=== PATIENT | female | born 1945 | race Hispanic/Latino ===

== ENCOUNTER 2017-04-27 08:01 | Emergency (ER) | payer OTHER, MEDICARE ==
[~2017-04-27] VITALS: Ht 167.6 cm; Wt 72.6 kg
[~2017-04-27 08:01] MED LIST: A/B OTIC 54 MG/15 ML OT; ANTIVERT 25MG #1 PAC PO; ANTIVERT25 MG PO; FIORICET 50-301 EACH PO; FLONASE120 SPRAY/ IN; IBUPROFEN800 M1 PO; MECLIZINE HCL25 MG PO; MOTRIN 600 MG600 MG PO; VALIUM5 M2 PO; ZOFRAN ODT4 M1 SL; ZOFRAN4 M2 PO
[2017-04-27 08:07] VITALS: BP 139/78
--- NOTE | 2017-04-27 09:17 | RADIOLOGY REPORT ---
EXAMINATION: XR PORTABLE CHEST CLINICAL INFORMATION: Chest pain COMPARISON: 08/11/2015 chest x-ray TECHNIQUE: Portable AP upright view of the chest was obtained. FINDINGS: Heart size and pulmonary vascularity is within normal limits. The lungs are normally expanded and clear. No focal consolidation or atelectasis is seen. There is no pneumothorax or pleural effusion. There is no change compared to prior study IMPRESSION: Normally expanded and grossly clear lungs with no acute findings.
[2017-04-27 09:18] LABS: ABSOLUTE BASOPHIL COUNT 0 /CUMM (0.0-0.2); ABSOLUTE EOSINOPHIL COUNT 0.1 /CUMM (0.0-0.7); ABSOLUTE GRANULOCYTE CT 3.5 /CUMM (1.4-6.5); ABSOLUTE MONOCYTE COUNT 0.5 /CUMM (0.10-0.60); BASOPHIL % 0.6 % (0.0-2.0); EOSINOPHIL % 1.9 % (0-5); GRANULOCYTE % 57.3 % (42.2-75.2); HEMATOCRIT 38.6 % (37-47); MEAN CORPUSCULAR HGB 29.9 PG (27.0-31.0); MEAN CORPUSCULAR HGB CONC 33.6 G/DL (33.0-37.0); MEAN CORPUSCULAR VOLUME 89.1 FL (81.0-99.0); MEAN PLATELET VOLUME 7.9 FL (7.4-10.4); PLATELET COUNT 231 /CUMM (130-400); RBC DISTRIBUTION WIDTH 13.8 % (11.5-14.5); RED BLOOD CELL CT 4.34 /CUMM (4.20-5.40); WHITE BLOOD CELL COUNT 6.1 /CUMM (4.8-10.8)
[2017-04-27] MEDS ORDERED: IBUPROFEN600 M1 PO ×2 (10:35→10:56)
[2017-04-27] MEDS ORDERED: BACLOFEN10 M1 PO ×2 (10:35→10:56)
[2017-04-27] MEDS ORDERED: ULTRAM50 M1 PO ×2 (10:35→10:56)
[2017-04-27] MEDS ORDERED: [UNRECOGNIZED DRUG - SUPPLY] (10:37)
--- NOTE | 2017-04-27 10:38 | ED NECK/BACK PAIN COMPLAINT ---
History of Present Illness General Chief Complaint: Low Back Pain/Injury Stated Complaint: LOW BACK PAIN Source: patient, old records Exam Limitations: no limitations Vital Signs & Intake/Output Vital Signs & Intake/Output Vital Signs Date Time Temp Pulse Resp B/P B/P Pulse O2 O2 Flow FiO2 Mean Ox Delivery Rate 04/27 0822 97 Room Air Room Air 04/27 0807 98.6 77 18 139/78 98 Room Air Allergies Coded Allergies: NO KNOWN ALLERGIES (05/28/16) Reconcile Medications Diazepam (Valium) 5 MG TABLET 1 TAB PO Q8P PRN dizziness Ibuprofen 800 MG TABLET 1 TAB PO PRN PAIN (Reported) Ibuprofen 800 MG TABLET 1 TAB PO TID PRN pain Meclizine (Antivert) 25 MG TABLET 1 TAB PO TID dizziness Meclizine HCl 25 MG TABLET 1 TAB PO TIDPRN PRN VERTIGO Ondansetron (Zofran Odt) 4 MG TAB.RAPDIS 1 TAB SL TID PRN NAUSEA Triage Note: 71 YO FEMALE TO TRIAGE C/O R SIDED LOW BACK RADIAING DOWN R LEG. ALSO STATES SHE HAS BEEN HAVEING L SIDED CHEST PAIN X 3 DAYS. STATES PAIN IS NONRADIAITNG IN CHEST, DENIES SOB. Triage Nurses Notes Reviewed? yes Onset: Last week Duration: constant, continues in ED Timing: recent history Quality/Severity: moderate, severe, radiation, sharpness Location: lumbar spine Radiation: upper legs, lower legs Context: turning/bending Method of Injury: unknown Loss of Consciousness: no loss of consciousness Modifying Factors: movement, rest Associated Symptoms: chest pain, lower back pain LMP (ages 10-50): post menopausal : No Patient currently breastfeeds: No HPI: 1 week prior to admission patient complains of right lower back pain radiating to her buttocks upper and lower leg described as constant sharp moderate to severe worse with turning bending. She also complains of left-sided chest pain constant radiating to her back associated with movement of the upper arm mild to moderate in severity. She denies fever chills nausea vomiting diarrhea abdominal pain shortness breath headache dysuria rash bleeding change in motor sensory function change in bowel bladder habit. Past History Travel History Traveled to [place] past 21 day No Medical History Any Pertinent Medical History? 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 No Review of Systems Review of Systems Constitutional: Reports: no symptoms. Eyes: Reports: no symptoms. Ears, Nose, Throat, Mouth: Reports: no symptoms. Respiratory: Reports: no symptoms. Cardiovascular: Reports: see HPI, chest pain. Gastrointestinal/Abdominal: Reports: no symptoms. Musculoskeletal: Reports: see HPI, back pain. Skin: Reports: no symptoms. Neurological/Psychological: Reports: no symptoms. All Other Systems: Reviewed and Negative Physical Exam Physical Exam General Appearance: well developed/nourished, mild distress Head: atraumatic, normal appearance Eyes: Bilateral: normal appearance, PERRL, EOMI, normal inspection. Ears, Nose, Throat, Mouth: hearing grossly normal Neck: normal inspection, supple, full range of motion, normal alignment Respiratory: normal breath sounds, chest non-tender, no respiratory distress, quiet respiration, lungs clear Cardiovascular: regular rate/rhythm, normal peripheral pulses, norml femoral pulses equa Peripheral Pulses: 4+ carotid (R), 4+ carotid (L) Gastrointestinal: normal bowel sounds, soft, non-tender, no organomegaly Back: normal inspection, decreased range of motion, muscle spasm, no vertebral tenderness Extremities: non-tender, normal range of motion, straight leg raised Straight Leg Raising: Right: Pain at ____ degrees (10). Sensory: Medial Le: L4R, L4L. Top of Foot: 2: L5R, L5L. Sole of Foot: 2: SIR, JUANITA. Motor: Deficit L4 Right: No Deficit L4 Left: No Deficit L5 Right: No Deficit L5 Left: No Deficit S1 Right: No Deficit S1 Right: No DTR: Deficit L4 Left: No Deficit L4 Right: No Deficit S1 Left: No Deficit S1 Right: No Patellar: 3: L4 Right, L4 Left. Achilles: 3: S1 Right, S1 Left. 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 as tested Skin: intact, normal color, warm/dry Progress Differential Diagnosis: herniated disc, myofascial strain, sciatica Plan of Care: Orders Procedure Date/time Status TROPONIN LEVEL 04/27 832 Complete MAGNESIUM 04/27 832 Complete COMPREHENSIVE METABOLIC PANEL 04/27 832 Complete CBC WITHOUT DIFFERENTIAL 04/27 832 Complete EKG 04/27 808 Active Laboratory Tests 04/27/17 0852: Anion Gap 9, Estimated GFR > 60, BUN/Creatinine Ratio 21.7, Glucose 91, Calcium 8.8, Magnesium 2.1, Total Bilirubin 0.9, AST 21, ALT 34, Alkaline Phosphatase 64 , Troponin I < 0.01, Total Protein 7.0, Albumin 4.0, Globulin 3.0, Albumin/ Globulin Ratio 1.3, CBC w Diff NO MAN DIFF REQ, RBC 4.34, MCV 89.1, MCH 29.9, RDW 13.8, MPV 7.9, Gran % 57.3, Lymphocytes % 32.7, Monocytes % 7.5, Eosinophils % 1.9, Basophils % 0.6, Absolute Granulocytes 3.5, Absolute Lymphocytes 2.0, Absolute Monocytes 0.5, Absolute Eosinophils 0.1, Absolute Basophils 0, PUBS MCHC 33.6 Departure Departure Time of Disposition: 103 Disposition: HOME OR SELF CARE Condition: Stable Clinical Impression Primary Impression: Sciatica of right side associated with disorder of lumbar spine Secondary Impressions: Chest pain syndrome Referrals: KYLE CARRILLO MD (PCP/Family) Departure Forms: Customer Survey General Discharge Information Prescriptions: Current Visit Scripts Ibuprofen 1 TAB PO Q6PRN PRN pain #50 TAB with food Baclofen 1 TAB PO TIDPRN PRN muscle spasm/strain #30 TAB Tramadol HCl (Ultram) 1-2 TAB PO Q6PRN PRN severe pain #30 TAB [Lumbar back brace] #1
== END 2017-04-27 11:17 ==
LOC: ERH 08:01
PROVIDERS: Emergency Medicine
DX: M54.41 Lumbago with sciatica, right side (principal); R07.9 Chest pain, unspecified
CPT/HCPCS: 93005; 93010; 96374; 96375; J1885; J3360